=== PATIENT | female | born 1940 | race Caucasian/White ===

== ENCOUNTER 2023-05-09 21:53 | Emergency (ER) | payer OTHER ==
[2023-05-09 22:04] VITALS: BP 131/83; PULSE 76; RESP 18; TEMP 98; BMI 27.3
== END 2023-05-09 23:06 | disposition home or self-care (01) ==
LOC: FER 21:53
DX: R42 Dizziness and giddiness (principal); R55 Syncope and collapse
CPT/HCPCS: 93005